=== PATIENT | male | born 1985 | race American Indian/Alaskan Native ===

== ENCOUNTER 2016-10-09 02:37 | Emergency (ER) | payer SELFPAY ==
[2016-10-09 03:26] VITALS: BP 116/79
== END 2016-10-09 03:27 | disposition left against medical advice (07) ==
LOC: ED 02:37
DX: T54.91XA Toxic effect of unspecified corrosive substance, accidental (unintentional), initial encounter (principal); F17.200 Nicotine dependence, unspecified, uncomplicated; Y92.89 Other specified places as the place of occurrence of the external cause; Z53.21 Procedure and treatment not carried out due to patient leaving prior to being seen by health care provider